=== PATIENT | female | born 1965 | race Caucasian/White ===

== ENCOUNTER 2016-08-31 06:11 | Day surgery (SDC) | payer BC ==
[2016-08-31] MEDS ORDERED: MUPIROCIN 2% OINT 1 APPLIC/GM SYR NASAL SCH (06:30)
[2016-08-31] MEDS ORDERED: ceFAZolin 2 GM PREMIX 50 ML IV SCH (06:30)
[2016-08-31] MEDS ORDERED: CHLORHEXIDINE GLUCONATE 2 % 1 PACK (2 CLOTHS) TOPICAL SCH (06:30)
[2016-08-31] MEDS: POVIDONE IODINE 5% (ANTISEPSIS KIT) 4 APPLICATIONS EACH NARE SCH ×2 (06:35→08:50)
[2016-08-31] MEDS ORDERED: LEVO75TA3 PO (06:36)
[2016-08-31] MEDS ORDERED: MIDAZOLAM HCL 5 MG/5 ML VIAL ONE (07:44)
[2016-08-31] MEDS ORDERED: LIDOCAINE HCL 1% 50 ML VIAL ONE (08:24)
--- NOTE | 2016-08-31 09:09 | MA ---
cc: ALDEN TUCKER DO DATE 08/31/2016 INDICATIONS History of syncope. PERFORMING PHYSICIAN Dr. Claudio Harris PROCEDURE PERFORMED 1. 15 minutes of moderate IV sedation. 2. Loop recorder insertion DESCRIPTION OF PROCEDURE The patient was brought to the DOC unit in the postabsorptive state. After informed consent was obtained, 2 mg of Versed and 25 mcg of Fentanyl was given for moderate IV sedation. Next, the a virocyt Reveal LINQ loop recorder was inserted subcutaneously in the left chest. Two positions were tried to achieve the best R-waves. Due to the patient's soft tissue, the best R-wave achieved was 0.17 mV, although this was slightly suboptimal, I believe it will be adequate and do not feel an additional repositioning would be beneficial or achieve a significantly higher R-wave result. The patient tolerated the procedure well without any apparent complications. Tachybrady pause and atrial fibrillation detection was enabled. The serial number was [id number]. MD JAYSON Avila/KAYLIN /8:52 AM /8:58 AM
== END 2016-08-31 09:58 | disposition home or self-care (01) ==
LOC: HCAT 06:11 → HDIC 06:12 → HCAT 09:58
PROVIDERS: ATTEND Nuclear Medicine Nuclear Cardiology
DX: R55 Syncope and collapse (principal)
CPT/HCPCS: 33282; C1764; J0690; J2250; J3010